=== PATIENT | female | born 1965 | race Caucasian/White ===

== ENCOUNTER 2017-01-11 08:54 | Day surgery (SDC) | payer OTHER ==
[2017-01-11] MEDS ORDERED: Sodium Chloride 0.9% 1000 ML 1,000 ML ONE (08:58)
[2017-01-11] MEDS ORDERED: Sodium Chloride 0.9% 1000 ML 1,000 ML IV SCH (09:00)
[2017-01-11 14:44] VITALS: BP 149/84; PULSE 89; O2SAT 98
== END 2017-01-11 14:40 | disposition home or self-care (01) ==
LOC: INFUSION 08:54
PROVIDERS: ATTEND Family Medicine
DX: D64.9 Anemia, unspecified (principal)
CPT/HCPCS: 36415; 36430; 86850; 86900; 86901; 86922; 96365; 96366; P9016

== ENCOUNTER 2017-06-12 12:49 | Day surgery (SDC) | payer OTHER ==
[~2017-06-12 12:49] MED LIST: Sodium Chloride 0.9% 1000 ML 1,000 ML ONE
[2017-06-12 17:41] VITALS: BP 133/81; PULSE 85; O2SAT 100
[2017-06-12] MEDS ORDERED: Sodium Chloride 0.9% 1000 ML 1,000 ML IV SCH (18:00)
== END 2017-06-12 17:40 | disposition home or self-care (01) ==
LOC: SDC 12:49
PROVIDERS: ATTEND Family Medicine
DX: D64.9 Anemia, unspecified (principal)
CPT/HCPCS: 36415; 36430; 86850; 86900; 86901; 86922; 96365; 96366; P9016

== ENCOUNTER 2024-02-14 20:06 | Emergency (ER) | payer OTHER ==
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
[2024-02-15] VITALS: BP 185/127; PULSE 121; RESP 18; O2SAT 98
== END 2024-02-14 23:50 | disposition home or self-care (01) ==
LOC: ED 20:06
DX: Z04.1 Encounter for examination and observation following transport accident (principal); S22.41XA Multiple fractures of ribs, right side, initial encounter for closed fracture; V89.2XXA Person injured in unspecified motor-vehicle accident, traffic, initial encounter; M79.671 Pain in right foot; R07.9 Chest pain, unspecified
CPT/HCPCS: 36415; 70450; 71260; 72125; 73630; 74177; 99285; 99291